=== PATIENT | male | born 1970 | race Caucasian/White ===

== ENCOUNTER 2017-11-10 22:18 | Emergency (ER) | payer MEDICAID ==
[~2017-11-10] VITALS: Ht 175.3 cm; Wt 70.3 kg
[~2017-11-10 22:18] MED LIST: FOLI1TAB16 PO; LORA-259 PO; THIA100T74 PO
[2017-11-10 22:28] VITALS: BP 131/74
== END 2017-11-11 00:03 | disposition home or self-care (01) ==
LOC: ER 22:19
DX: L08.89 Other specified local infections of the skin and subcutaneous tissue (principal); F41.9 Anxiety disorder, unspecified; Z91.018 Allergy to other foods; Z79.899 Other long term (current) drug therapy
CPT/HCPCS: 99283; A4606; Z7610

== ENCOUNTER 2019-07-28 21:55 | Emergency (ER) | payer SELFPAY ==
[~2019-07-28] VITALS: Ht 175.3 cm; Wt 72.6 kg
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
[2019-07-28] MEDS ORDERED: LORAZEPAM 1 MG TABLET PO ONE (22:30)
[2019-07-28] MEDS ORDERED: TDAP [DIPH/PERTUSSIS/TET] 0.5 ML VIAL IM ONE ×2 (22:30→22:32)
[2019-07-28] MEDS ORDERED: LORAZEPAM 0.5 MG TABLET ONE (22:31)
--- NOTE | 2019-07-28 22:37 | NUR ---
EMT AT BEDSIDE FOR WOUND CARE.
--- NOTE | 2019-07-28 23:04 | NUR ---
Patient discharged to home in stable condition. Written and verbal after care instructions given. Patient verbalizes understanding of instruction. Pt wound cleaned and wrapped. vss. Ambulated with steady gait.
[2019-07-28 23:05] VITALS: BP 121/69
== END 2019-07-28 23:05 | disposition home or self-care (01) ==
LOC: ER 22:01
DX: S61.512A Laceration without foreign body of left wrist, initial encounter (principal); Z91.018 Allergy to other foods; Z79.899 Other long term (current) drug therapy; W26.0XXA Contact with knife, initial encounter; Y93.89 Activity, other specified; Y92.89 Other specified places as the place of occurrence of the external cause; Y99.0 Civilian activity done for income or pay
CPT/HCPCS: 12001; 90471; 90715; 99283; A6403

== ENCOUNTER 2020-04-25 23:48 | Emergency (ER) | payer SELFPAY ==
[~2020-04-25] VITALS: Ht 175.3 cm; Wt 70.3 kg
[2020-04-26] VITALS: BP 128/71
--- NOTE | 2020-04-26 00:12 | NUR ---
DR NUÑEZ AT BEDSIDE FOR EVAL
[2020-04-26] MEDS ORDERED: CLIN300C12 PO (00:41)
--- NOTE | 2020-04-26 01:00 | NUR ---
Patient discharged to home in stable condition. Written and verbal after care instructions given. Patient verbalizes understanding of instruction.pt. ambulatory with a steady gait
== END 2020-04-26 01:00 | disposition home or self-care (01) ==
LOC: ER 23:50
DX: S69.82XA Other specified injuries of left wrist, hand and finger(s), initial encounter (principal); S61.233A Puncture wound without foreign body of left middle finger without damage to nail, initial encounter; Z91.018 Allergy to other foods; Z79.899 Other long term (current) drug therapy; X58.XXXA Exposure to other specified factors, initial encounter; Y93.89 Activity, other specified; Y92.89 Other specified places as the place of occurrence of the external cause; Y99.8 Other external cause status
CPT/HCPCS: 73130-TC

== ENCOUNTER 2021-03-10 18:24 | Emergency (ER) | payer SELFPAY ==
[~2021-03-10] VITALS: Ht 175.3 cm; Wt 72.6 kg
[~2021-03-10 18:24] MED LIST changes: +CLIN300C12 PO
[2021-03-10 18:52] VITALS: BP 134/89
--- NOTE | 2021-03-10 19:55 | NUR ---
CALLED TO TRIAGE NO ANSWER
--- NOTE | 2021-03-10 20:30 | NUR ---
CALLED TO TRIAGE NO ANSWER
== END 2021-03-10 22:52 | disposition left against medical advice (07) ==
LOC: ER 18:25
DX: S61.216A Laceration without foreign body of right little finger without damage to nail, initial encounter (principal); W25.XXXA Contact with sharp glass, initial encounter; Y93.89 Activity, other specified; Y92.89 Other specified places as the place of occurrence of the external cause; Y99.8 Other external cause status

== ENCOUNTER 2022-10-18 22:14 | Emergency (ER) | payer MEDICAID ==
[~2022-10-18] VITALS: Ht 175.3 cm; Wt 72.6 kg
[2022-10-18 23:14] VITALS: BP 129/78; TEMP 98.3; O2SAT 99
== END 2022-10-18 23:14 | disposition home or self-care (01) ==
LOC: ER 22:20
DX: L84 Corns and callosities (principal); Z88.8 Allergy status to other drugs, medicaments and biological substances; Z91.018 Allergy to other foods